=== PATIENT | female | born 1990 | race African-American/Black ===

== ENCOUNTER 2016-08-01 11:37 | Emergency (ER) | payer OTHER ==
[~2016-08-01 11:37] MED LIST: ADOXA PAK100 MG PO; CIPRO PO; DOXYCYCLINE HY100 M3 PO; FLAGYL PO; HYDROCODON-ACE1 EAC7 PO; MACROBID100 M1 PO; NO MEDICATIONS; NORCO1 TAB 10/3 DOB; PERCOCET5/325 PO; PHENERGAN25 M1 PO; PHENERGAN25 MG PO; VITANATAL OB +1 EACH PO
== END 2016-08-01 13:22 | disposition home or self-care (01) ==
LOC: CED 11:37 → CFTX 11:37
DX: H10.9 Unspecified conjunctivitis (principal); F17.210 Nicotine dependence, cigarettes, uncomplicated
CPT/HCPCS: 99282; 99283

== ENCOUNTER 2016-08-21 04:50 | Emergency (ER) | payer OTHER ==
--- NOTE | ~2016-08-21 | CT114 ---
[facility] A Service of [facility] & [facility] RADIOLOGY TEXT RESULTS PATIENT: FELIZ GRAY LOCATION: [facility] : [birth year] UNIT #: [id number] AGE: [address]: Kehinde Taylor MD SEX: F ORDER DR: [id number] [facility] [address] [place], [place] [address] [id number] MR#: [id number] Acc #: [id number] NAME: FELIZ GRAY. : 1990 SEX: F STUDY DATE/TIME: 08/21/2016 7:44 UNIT: [facility] ROOM: STUDY DESCRIPTION: CT Soft Tissue Neck W Cont Attending Physician: Ángel Taylor M.D. Ordering Physician: Ed Doctor [id number] [facility] Primary Care Physician: Primary Care Physician No MEDICAL IMAGING REPORT This report is preliminary unless electronic signature is present EXAM Neck CT with contrast HISTORY Sore throat, nausea, vomiting and body aches for the past week. TECHNIQUE Axial imaging was obtained from the skull base to the upper mediastinum with contrast. 75 mL of Isovue was used. This CT exam was performed with one or more of the following radiation dose reduction techniques: automatic exposure control, adjustment of mA and/or kV according to patient size, and iterative reconstruction. FINDINGS The skull base is unremarkable. Generalized soft tissue swelling is seen in the left tonsillar pillar extending up into the left nasopharynx near the eustachian tube. There is no evidence of a drainable abscess. There is enhancing lymph node adjacent to the left carotid bifurcation that is normal in size measuring 1.0 cm and likely reactive. There is also mild enlargement and hyperenhancement of the left submandibular gland compared to the right. This could reflect either submandibular sialitis or reactive hyperemia from the adjacent inflammation. I do not see any evidence of a submandibular duct stone. Soft tissue planes in the hypopharynx and larynx are preserved. The thyroid gland is not enlarged. No vascular abnormalities are seen in the neck. The upper mediastinum is unremarkable and the upper lung garcia are clear. IMPRESSION Extensive left-sided pharyngitis centered at the tonsillar pillar on the left extending up into the nasopharynx and down toward the piriform sinus. A discrete drainable abscess is not identified. Reactive adenopathy is seen on the left and the left submandibular gland shows mild enlargement STS. [facility] A Service of [facility] & [facility] RADIOLOGY TEXT RESULTS PATIENT: FELIZ GRAY LOCATION: [facility] : [birth year] UNIT #: [id number] AGE: [address]: Kehinde Taylor MD SEX: F ORDER DR: and hyperenhancement either secondary to sialitis or reactive hyperemia. No evidence of submandibular duct obstruction or stone disease. Dictated by... Agustin Slade M.D. THIS IS AN ELECTRONICALLY VERIFIED REPORT Agustin Slade M.D. at 08/21/2016 1:27 PM Natividad TD: 08/21/2016 10:26 JOB #: [id number] MEDICAL IMAGING REPORT Page 1 of 1 COPY
[2016-08-21 05:35] LABS: INFLUENZA A NEG (NEG); INFLUENZA B NEG (NEG)
[2016-08-21 05:54] LABS: BASOPHIL# 0.1 X10e3 (0-0.3); BASOPHIL% 0.2 % (0-2.5); EOSINOPHIL# 0.2 X10e3 (0-0.7); HEMATOCRIT 37.4 % (35.0-45.0); HEMOGLOBIN 11.8 gm/dL (12.0-16.0); LYMPHOCYTE# 1.7 X10e3 (1.0-3.5); LYMPHOCYTE% 7.6 % (17.0-45.0); MEAN CELL VOLUME 89.1 FL (83-96); MEAN CORPUSCULAR HEMOGLOBIN 28.2 PG (28-34); MEAN CORPUSCULAR HGB CONC 31.6 g/dL (30-36); MEAN PLATELET VOLUME 9.4 FL (6.5-11.5); MONOCYTE# 1.5 X10e3 (0-1.0); MONOCYTE% 6.6 % (3.0-12.0); NEUTROPHIL# 19.4 X10e3 (1.5-7.1); NEUTROPHIL% 84.6 % (40-75); PLATELET COUNT 258 X10e3 (140-420); RED BLOOD COUNT 4.19 X10e (3.90-5.30); RED CELL DISTRIBUTION WIDTH 15.7 % (11.0-15.5); WHITE BLOOD COUNT 22.9 X10e3 (4.0-10.5)
[2016-08-21 05:55] LABS: DIFF IND YES
[2016-08-21 06:27] LABS: PLATELET ESTIMATE NORMAL (NORMAL)
[2016-08-21 06:28] LABS: ANISOCYTOSIS SL
[2016-08-21 06:37] LABS: CALCIUM SERUM 8.8 mg/dL (8.4-10.2); GLOM FILT RATE Estimated 91.4 mL/min (>60); POTASSIUM 3.4 mmol/L (3.5-5.1)
== END 2016-08-21 10:30 | disposition home or self-care (01) ==
LOC: CED 04:50
PROVIDERS: Emergency Medicine
DX: J02.9 Acute pharyngitis, unspecified (principal); F17.200 Nicotine dependence, unspecified, uncomplicated
CPT/HCPCS: 36415; 70491; 80048; 84703; 85025; 86308; 87651; 87804; 96361; 96365; 96375; 99283; J1100; J2270; Q9967